=== PATIENT | female | born 2000 | race Caucasian/White ===

== ENCOUNTER → 2024-02-06 | Outpatient (CLI) | payer OTHER ==
[2024-02-06 22:40] LABS: Basophils # (A) 0.02 X 10*3/uL (0.00-0.10); Basophils % (A) 0.3 %; Eosinophils # (A) 0.05 X 10*3/uL (0.04-0.35); Eosinophils % (A) 0.8 %; HGB 12.9 g/dL (12.0-15.0); Lymphocytes # (A) 2.23 X 10*3/uL (0.90-5.00); Lymphocytes % (A) 34.3 %; MCH 27.9 pg (27.0-32.0); MCHC 31.5 g/dL (32.0-37.0); MCV 88.6 FL (80.0-97.0); Mean Platelet Volume 9.3 FL (9.5-12.2); Monocytes # (A) 0.57 X 10*3/uL (0.20-1.00); Monocytes % (A) 8.8 %; NRBC Per 100 WBC 0 X 10*3/uL (0.00-0.01); Neutrophils # (A) 3.61 X 10*3/uL (1.80-7.70); Neutrophils % (A) 55.5 %; Platelet Count 292 X 10*3/uL (140-440); RBC 4.63 X 10*6/uL (4.10-5.20); RDW 12.9 % (11.5-14.5)
[2024-02-06 23:05] LABS: % Iron Saturation 18.59 (12.00-45.00); Chol/HDL Ratio 3.03 Ratio; Iron 71 UG/DL (50-170); LDL Cholesterol,Calculated 102.3 mg/dL (0.0-131.0); Total Iron Binding Capacity 382 UG/DL (228-460)
[2024-02-06 23:06] LABS: ALT 42 U/L (8-44); AST 29 U/L (13-35); Albumin 4.3 g/dL (3.8-4.9); Albumin/Globulin Ratio 1.59 Ratio (1.60-3.17); Alkaline Phosphatase 75 U/L (41-126); BUN/Creat Ratio 18.17 Ratio (12.00-20.00); Blood Urea Nitrogen 10.9 mg/dL (9.0-27.0); Calcium 9.4 mg/dL (8.7-10.3); Carbon Dioxide 27.2 mmol/L (21.6-31.8); Chloride 103 mmol/L (96-109); Ferritin 25.2 ng/mL (10.0-291.0); Globulin 2.7 g/dL (1.6-3.3); Glucose 98 mg/dL (70-110); Potassium 4.1 mmol/L (3.5-5.5); Sodium 140 mmol/L (135-145); T4, Free (Free Thyroxine) 0.92 ng/dL (0.80-1.80); Total Bilirubin 0.3 mg/dL (0.3-1.2)
[2024-02-06 23:20] LABS: Follicle Stimulating Hormone 3.5 mIU/mL; Luteinizing Hormone 10.9 mIU/mL
[2024-02-07 10:37] LABS: ACTH 22.1 pg/mL (0.00-45.99)
--- NOTE | 2024-02-08 12:57 | MR ---
EXAMINATION TYPE: MR lumbar spine wo con DATE OF EXAM: 02/06/2024 COMPARISON: Outside lumbar spine x-ray January 15, 2024 HISTORY: Low back pain that radiates down both legs for 3 years. TECHNIQUE: Multiplanar, multisequence imaging of the lumbar spine is performed without IV contrast. FINDINGS: Sagittal images of the lumbar spine show vertebral body heights and alignment to appear sat isfactory. There is disc desiccation and mild disc space narrowing L5-S1 level otherwise the interver tebral discs demonstrate normal heights and hydration. The conus medullaris is normal in position an d signal ending at mid L1 level. The bone marrow signal intensity is within normal limits. Axial images show T12-L1 through L4-L5 levels to appear within normal limits. Axial images at L5-S1 level shows subtle spondylolisthesis with mild broad disc bulge having broad-ba sed left paracentral/foraminal disc protrusion component causing asymmetric moderate left-sided infer ior neural foraminal narrowing encroaching on the left L5 nerve seen best sagittal image 3 and axial image 3. Spinal canal is preserved. Paraspinal muscle bulk is maintained. IMPRESSION: Some spondylolisthesis and degenerative change at the lumbosacral junction. Left-sided ra diculopathy is suspected.
== END | disposition home or self-care (01) ==
LOC: RADMRIMAIN 10:26
PROVIDERS: ATTEND Orthopaedic Surgery
DX: M47.817 Spondylosis without myelopathy or radiculopathy, lumbosacral region (principal); E03.9 Hypothyroidism, unspecified; E28.2 Polycystic ovarian syndrome
CPT/HCPCS: 72148; 80053; 80061; 82024; 82040; 82157; 82306; 82533; 82607; 82626; 82627; 82670; 82728; 83001; 83002; 83498; 83540; 83550; 84146; 84270; 84305; 84403; 84439; 84443; 85025; 86800